=== PATIENT | male | born 1955 | race Caucasian/White ===

== ENCOUNTER 2016-09-25 21:16 | Emergency (ER) | payer OTHER ==
[~2016-09-25] VITALS: Ht 167.6 cm; Wt 76.3 kg
[~2016-09-25 21:16] MED LIST: FLOMAX0.4 MG PO; GABAPENTIN300 MG; GABAPENTIN300 MG PO; Motrin PO; NOHOMEMEDS; Neurontin PO; PERCOCET 5/31 TABLET PO; Protonix PO
[2016-09-25 23:05] VITALS: BP 113/76
== END 2016-09-25 23:15 | disposition home or self-care (01) ==
LOC: EME 21:16
DX: H11.31 Conjunctival hemorrhage, right eye (principal)
CPT/HCPCS: 99281; 99284